=== PATIENT | female | born 1960 | race Caucasian/White ===

== ENCOUNTER 2018-03-05 16:55 | Emergency (ER) | payer SELFPAY ==
[~2018-03-05] VITALS: Ht 170.2 cm; Wt 56.2 kg
[2018-03-05 17:13] VITALS: BP 137/84
[2018-03-05 17:43] LABS: ANION GAP 12 mmol/L (5-15); BLOOD UREA NITROGEN 15 mg/dL (7-18); CALCIUM 9.4 MG/DL (8.5-10.1); CARBON DIOXIDE 26 MMOL/L (21-32); CHLORIDE 107 MMOL/L (98-107); CREATININE 0.9 MG/DL (0.55-1.30); POTASSIUM 3.9 MMOL/L (3.5-5.1); SODIUM 144 MMOL/L (136-145)
[2018-03-05 17:44] LABS: BASOPHILS % (AUTO) 1.1 % (0.0-2.0); EOSINOPHILS % (AUTO) 0.6 % (0.0-3.0); HEMATOCRIT 43.2 % (37.0-47.0); HEMOGLOBIN 14.7 G/DL (12.0-16.0); LYMPHOCYTES % (AUTO) 24.4 % (20.0-45.0); MEAN CORPUSCULAR VOLUME 89 FL (80-99); MONOCYTES % (AUTO) 7.8 % (1.0-10.0); NEUTROPHILS % (AUTO) 66.1 % (45.0-75.0); PLATELET COUNT 179 K/UL (150-450); RED BLOOD COUNT 4.86 M/UL (4.20-5.40); RED CELL DISTRIBUTION WIDTH 10.6 % (11.6-14.8); WHITE BLOOD COUNT 4.5 K/UL (4.8-10.8)
[2018-03-05 17:47] LABS: ALANINE AMINOTRANSFERASE 30 U/L (12-78); ALBUMIN 4.1 G/DL (3.4-5.0); ALBUMIN/GLOBULIN RATIO 1.2 (1.0-2.7); ALKALINE PHOSPHATASE 101 U/L (46-116); ASPARTATE AMINO TRANSFERASE 22 U/L (15-37); BILIRUBIN,TOTAL 0.3 MG/DL (0.2-1.0)
[2018-03-05] MEDS ORDERED: OMEPRAZOLE20 M2 ORAL (18:16)
[2018-03-05] MEDS ORDERED: MULTIVITAMINS1 EAC2 ORAL (18:16)
[2018-03-05 18:20] VITALS: BP 137/84
--- NOTE | 2018-03-05 19:33 | Emergency Room Report ---
History of Present Illness General Chief Complaint: General Complaint Source: Patient Present Illness HPI The patient is a 57-year-old female presenting for complaints of possible dehydration. She states that she drinks approximately 3 cups of water per day. She has been experiencing cramping in her arms and legs for the past 2 weeks. She states that her urine is clear. She also complains of some burning in the abdominal region and chest. She admits to eating multiple cloves of garlic per day. She denies other symptoms including nausea, vomiting, fever, chills, dizziness, headache, weakness, dysuria, hematuria, back pain, diarrhea, constipation Allergies: Coded Allergies: SULFAMETHOXAZOLE (Verified Allergy, Unknown, 03/05/18) TRIMETHOPRIM (Verified Allergy, Unknown, 03/05/18) Patient History Past Medical History: see triage record Pertinent Family History: none Reviewed Nursing Documentation: PMH: Agreed; PSxH: Agreed Nursing Documentation-PMH Hx Gastrointestinal Problems: No - chronic IBS Review of Systems All Other Systems: negative except mentioned in HPI Physical Exam Vital Signs Date Time Temp Pulse Resp B/P (MAP) Pulse Ox O2 Delivery O2 Flow Rate FiO2 03/05/18 17:00 98.7 88 18 137/84 96 Room Air 98.8 Sp02 EP Interpretation: reviewed, normal General Appearance: no apparent distress, alert, GCS 15, non-toxic Head: normocephalic, atraumatic Respiratory: chest non-tender, lungs clear, normal breath sounds, speaking full sentences Cardiovascular #1: regular rate, rhythm, no edema Gastrointestinal: normal bowel sounds, non tender, soft, non-distended, no guarding, no rebound Genitourinary: normal inspection, no CVA tenderness Musculoskeletal: back normal, gait/station normal, normal range of motion, non- tender Neurologic: alert, oriented x3, responsive, motor strength/tone normal, sensory intact, speech normal Psychiatric: judgement/insight normal, mood/affect normal, no suicidal/ homicidal ideation Skin: normal color, no rash, warm/dry, well hydrated Medical Decision Making PA Attestation Dr. Almeida is my supervising physician. Patient management was discussed with my supervising physician Diagnostic Impression: Primary Impression: GERD (gastroesophageal reflux disease) Qualified Codes: K21.9 - Gastro-esophageal reflux disease without esophagitis ER Course The patient is a 57-year-old female presenting for complaints of possible dehydration. DDx considered but not limited to: Dehydration, electrolyte imbalance, GERD, muscle strain, anxiety, among others PE: Vitals WNL. NAD RRR. Lungs CTA bilat Abd soft and non tender. Normal BS. Skin warm and dry. No erythema. Normal turgor Labs: Unremarkable. Pt refused to provide urine Pt given 1L NS. She is AZ'ed home with omeprazole and dietary instructions. She was told to take a multivitamin daily and F/U with PMD. ER precautions given Laboratory Tests Test 03/05/18 17:28 White Blood Count 4.5 K/UL (4.8-10.8) L Red Blood Count 4.86 M/UL (4.20-5.40) Hemoglobin 14.7 G/DL (12.0-16.0) Hematocrit 43.2 % (37.0-47.0) Mean Corpuscular Volume 89 FL (80-99) Mean Corpuscular Hemoglobin 30.4 PG (27.0-31.0) Mean Corpuscular Hemoglobin Concent 34.1 G/DL (32.0-36.0) Red Cell Distribution Width 10.6 % (11.6-14.8) L Platelet Count 179 K/UL (150-450) Mean Platelet Volume 6.3 FL (6.5-10.1) L Neutrophils (%) (Auto) 66.1 % (45.0-75.0) Lymphocytes (%) (Auto) 24.4 % (20.0-45.0) Monocytes (%) (Auto) 7.8 % (1.0-10.0) Eosinophils (%) (Auto) 0.6 % (0.0-3.0) Basophils (%) (Auto) 1.1 % (0.0-2.0) Sodium Level 144 MMOL/L (136-145) Potassium Level 3.9 MMOL/L (3.5-5.1) Chloride Level 107 MMOL/L (98-107) Carbon Dioxide Level 26 MMOL/L (21-32) Anion Gap 12 mmol/L (5-15) Blood Urea Nitrogen 15 mg/dL (7-18) Creatinine 0.9 MG/DL (0.55-1.30) Estimate Glomerular Filtration Rate > 60 mL/min (>60) Glucose Level 106 MG/DL (74-106) Calcium Level 9.4 MG/DL (8.5-10.1) Total Bilirubin 0.3 MG/DL (0.2-1.0) Aspartate Amino Transferase (AST) 22 U/L (15-37) Alanine Aminotransferase (ALT) 30 U/L (12-78) Alkaline Phosphatase 101 U/L (46-116) Total Protein 7.6 G/DL (6.4-8.2) Albumin 4.1 G/DL (3.4-5.0) Globulin 3.5 g/dL Albumin/Globulin Ratio 1.2 (1.0-2.7) Lipase 228 U/L (73-393) Lab Results Impression Unremarkable. Pt refused to provide urine Last Vital Signs Date Time Temp Pulse Resp B/P (MAP) Pulse Ox O2 Delivery O2 Flow Rate FiO2 03/05/18 18:20 98.8 88 18 137/84 96 Room Air 98.8 Status: improved Disposition: HOME, SELF-CARE Condition: Improved Scripts Multivitamins* (MULTIVITAMINS*) 1 Each Tablet 1 TAB ORAL DAILY, #30 TAB 0 Refills Prov: KATHY CORNELL 03/05/18 Omeprazole (OMEPRAZOLE) 20 Mg Capsule.dr 20 MG ORAL DAILY, #30 CAP Prov: KATHY CORNELL 03/05/18 Patient Instructions: Gastroesophageal Reflux Disease, Adult, Dehydration, Adult Additional Instructions: I discussed my findings with the patient. All questions and concerns have been answered. Treatment and medication compliance have been addressed. I advised the patient that they need to follow up with PMD in 3-5 days. Return to ED if symptoms worsen, new symptoms arise, or if needed for any reason. Patient verbalized understanding of discharge instructions. KATHY CORNELL Mar 05, 2018 19:33
== END 2018-03-05 18:22 | disposition home or self-care (01) ==
LOC: EMR 17:16
DX: K21.9 Gastro-esophageal reflux disease without esophagitis (principal); R25.2 Cramp and spasm; K58.9 Irritable bowel syndrome, unspecified; Z88.2 Allergy status to sulfonamides; Z88.3 Allergy status to other anti-infective agents
CPT/HCPCS: 36415; 80053; 83690; 85025; 96360; 99284